=== PATIENT | female | born 1990 | race Caucasian/White ===

== ENCOUNTER 2019-08-15 01:55 | Inpatient (IN) | payer OTHER ==
[2019-08-15] VITALS (24 sets, daily range): BP systolic 98–1119; BP diastolic 55–77; PULSE 60–120; TEMP 97.7–98.5
[~2019-08-15] VITALS: Ht 157.5 cm; Wt 68.6 kg
[~2019-08-15 01:55] MED LIST: MOTRIN 600600 MG/TAB PO; MOTRIN 800800 MG/TAB PO; PERCOCET 325 MG1 TA2 PO; ZANTAC 150150 MG
[2019-08-15] MEDS ORDERED: PRENATAL 191 TAB PO (02:01)
--- NOTE | 2019-08-15 02:02 | NUR ---
0202- PATIENT BEING SEEN ON L&D WTIH C/O POSSIBLE LEAKAGE OF FLUID. 0205- EFM APPLIED AT THIS TIME. VSS. 0215- NITRAZINE POSITIVE, VISUAL OF SROM NOTED-CLEAR FLUID. SVE 2-3/-3
[2019-08-15 03:16] LABS: BASO % 0.1 % (0.0-2.0); EOS # 0.1 (0.0-0.7); EOS % 0.5 % (0-4.0); GRAN # 7.7 (1.4-6.5); HEMATOCRIT 31.9 % (37.0-47.0); LYMPH # 1.4 (1.2-3.4); LYMPH % 13.8 % (20.0-51.0); MEAN CELL VOLUME 96 fl (80.0-100.0); MEAN CORPUSCULAR HEMOGLOBIN 33 pg (27.0-31.0); MEAN CORPUSCULAR HGB CONC 35 g/dl (33.0-37.0); MEAN PLATELET VOLUME 10.9 fl (7.4-10.4); MONO # 0.8 (0.1-0.6); MONO % 7.7 % (1.7-9.3); PLATELET COUNT 182 K/mm3 (130-400); RED BLOOD COUNT 3.31 M/mm3 (4.10-5.30); REDCELL DISTRIBUTION WIDTH-CV 12.9 % (11.5-14.5)
--- NOTE | 2019-08-15 09:00 | NUR ---
09-Patient requests SVE /-1, requests epidural. Rekha CRNA notified. IVF bolus started.
--- NOTE | 2019-08-15 09:17 | NUR ---
0917-Patient reports "incresed pressure with contraction" Variable decel with quick return to baseline in FHR. 09-RENZO Da Silva in room patient sitting up on bedside. 925-Sigle shot administered by RENZO Da Silva, VSS, patient tolerated well. See flow record. 30-Patient WL. Updated on safety and plan of care. MD on unit. Updated on patient.
--- NOTE | 2019-08-15 09:49 | NUR ---
0949-E 2, Updated Dr. Denson who remains on unit. 1000-Dr. Denson in room, set up for delivery 1005-Patient begins pushing with MD at bedside. Moves vertex well. 1007-Spontaneous delivery of head by MD. Loose nuchal cord x1 reduced by MD. Patient pushes and spontaneous deliverys female body. Viable to mothers abdomen. Cord clapm delayed x 90 sec per patient request. Cord clamped x2 and cut by Father of infant. Cord blood collected by MD and sent to lab per protocol. Care of assumed by Shanique Camilo RN. Apgars . 1011-Spontaneous delivery of intact placenta by MD. Fundal massage firm, lochia WNL. EBL 50ml. Pitocin bolus per MD orders and protocol. Perineum intact per MD. Vielka care provided. Updated on plan of care and safety.
--- NOTE | 2019-08-15 12:15 | NUR ---
1215-Patient easily up to bathroom, ambulates with steady gait. Voids 250ml clear yellow urien. Vielka care assisted. Ambulates to nursery to visit on radiant warmer.
[2019-08-16 03:05] VITALS: BP 100/64; PULSE 60; TEMP 97.6
[2019-08-16] MEDS ORDERED: PERCOCET 325 MG1 TA2 PO (08:06)
[2019-08-16] MEDS ORDERED: IBU600 MG PO (08:06)
[2019-08-16 08:20] VITALS: BP 110/70; PULSE 72; TEMP 97.8
--- NOTE | 2019-08-16 10:30 | NUR ---
Initial visit; Parents thanked for offering congratulations for the of their daughter. Direct Marketing Representative thanked family for choosing [facility].
[2019-08-16 16:14] VITALS: BP 115/78; PULSE 61; TEMP 98.2
[2019-08-16 20:35] VITALS: BP 107/75; PULSE 66; TEMP 97.8
[2019-08-17 07:00] VITALS: BP 115/61; PULSE 83; TEMP 98.9
== END 2019-08-17 18:19 | disposition home or self-care (01) | DRG 807 ==
LOC: LDRO 01:55 → LDR 02:29 → OB 02:29
PROVIDERS: ADMIT Student in an Organized Health Care Education/Training Program
PROC: 10E0XZZ Delivery of Products of Conception, External Approach (ICD-10-PCS; principal; 2019-08-15)
DX: O60.14X0 Preterm labor third trimester with preterm delivery third trimester, not applicable or unspecified (principal); Z37.0 Single live birth; Z3A.36 36 weeks gestation of pregnancy; O69.81X0 Labor and delivery complicated by cord around neck, without compression, not applicable or unspecified
CPT/HCPCS: J2400; J2540; J2590; J2791; J7120